=== PATIENT | male | born 1970 | race Caucasian/White ===

== ENCOUNTER 2023-01-16 06:58 | Day surgery (SDC) | payer OTHER ==
[2023-01-15 15:33] LABS: BASOPHILS % (AUTO) 0.9 % (0.0-2.0); EOSINOPHILS # (AUTO) 0.1 K/uL (0-0.4); EOSINOPHILS % (AUTO) 1.3 % (0.0-4.0); HEMATOCRIT 38.2 % (36-52); HEMOGLOBIN 13.4 g/dL (12.0-18.0); LYMPHOCYTES # (AUTO) 1.7 K/uL (2.0-11.5); LYMPHOCYTES % (AUTO) 32.4 % (20.5-51.1); MEAN CORPUSCULAR HEMOGLOBIN 29 pg (27-31); MEAN CORPUSCULAR HGB CONC 35 g/dL (33-37); MEAN CORPUSCULAR VOLUME 82.4 fL (80-94); MONOCYTES # (AUTO) 0.4 K/uL (0.8-1.0); MONOCYTES % (AUTO) 6.7 % (1.7-9.3); NEUTROPHILS # (AUTO) 3.1 K/uL (1.8-7.7); NEUTROPHILS % (AUTO) 58.7 % (42.2-75.2); PLATELET COUNT (AUTO) 196 K/uL (140-450); RED BLOOD CELL COUNT(AUTO) 4.64 MIL/uL (4.20-6.10); RED CELL DISTRIBUTION WIDTH 13.8 % (11.6-13.7); WHITE BLOOD COUNT (AUTO) 5.3 K/uL (4.8-10.8)
[2023-01-15 15:50] LABS: ALBUMIN 4.2 g/dL (3.4-5.0); ANION GAP 11.7 (8-16); POTASSIUM 3.7 mmol/L (3.5-5.1); TOTAL BILIRUBIN 0.4 mg/dL (0.0-1.0)
[~2023-01-16] VITALS: Ht 188 cm; Wt 99.8 kg
[~2023-01-16 06:58] MED LIST: HYDR-3298 PO
[2023-01-16] MEDS ORDERED: ONDANSETRON 4 MG/2 ML VIAL ONE ×2 (08:00→08:08)
[2023-01-16] MEDS ORDERED: SUCCINYLCHOLINE CHLORIDE 200 MG/10 ML VIAL IVP ONE ×2 (08:00→08:08)
[2023-01-16] MEDS ORDERED: ceFAZolin 1,000 MG VIAL ONE (08:00)
[2023-01-16] MEDS ORDERED: VECURONIUM 10 MG VIAL IVP ONE (08:00)
[2023-01-16] MEDS ORDERED: SUGAMMADEX SODIUM 200 MG/2 ML VIAL IV ONE ×2 (08:00→09:34)
[2023-01-16] MEDS ORDERED: PROPOFOL 200 MG/20 ML VIAL IV ONE ×2 (08:00→08:07)
[2023-01-16] MEDS ORDERED: DEXAMETHASONE 4 MG/ML VIAL ONE ×2 (08:00→08:08)
[2023-01-16] MEDS ORDERED: ROCURONIUM 50 MG/5 ML VIAL IV ONE ×2 (08:00→08:08)
[2023-01-16] MEDS ORDERED: LABETALOL 20 MG/4 ML VIAL IVP ONE (08:00)
[2023-01-16] MEDS ORDERED: fentaNYL citrate 0.05 MG/ML - 50mL vial IV ONE (08:00)
[2023-01-16] MEDS ORDERED: fentaNYL citrate 0.05 MG/ML VIAL ONE (08:07)
[2023-01-16] MEDS ORDERED: HYDROmorphone PFS 2 MG/ML SYR ONE ×2 (08:07→09:54)
[2023-01-16] MEDS ORDERED: KETOROLAC 30 MG/ML VIAL ONE (08:08)
[2023-01-16] MEDS ORDERED: BUPIVACAINE-MPF/EPI 0.25% 10 ML VIAL INJ ONE (08:09)
[2023-01-16] MEDS ORDERED: LIDOCAINE MPF 1% 10 ML ONE (08:09)
[2023-01-16] MEDS ORDERED: ACETAMINOPHEN 100 ML IV ONE (08:41)
[2023-01-16] MEDS ORDERED: LABETALOL 100 MG/20 ML VIAL ONE (09:46)
[2023-01-16] MEDS: HYDROmorphone 1 MG/ML AMP IVP PRN ×4 (09:55→10:25)
[2023-01-16] MEDS ORDERED: MORPHINE SULFATE 2 MG/ML SYR IVP PRN (10:20)
[2023-01-16] MEDS ORDERED: HYDROmorphone 1 MG/ML AMP IVP PRN (10:20)
[2023-01-16] MEDS ORDERED: ONDANSETRON 4 MG/2 ML VIAL IV PRN (10:20)
[2023-01-16] MEDS ORDERED: MORPHINE SULFATE 4 MG/ML SYR IV PRN (10:20)
[2023-01-16] MEDS ORDERED: HYDROcodone/APAP 5/325 MG 1 TAB TAB PO PRN (10:20)
[2023-01-16] MEDS ORDERED: HYDROcodone/APAP 5/325 MG 1 TAB TAB ONE (11:26)
[2023-01-17] MEDS ORDERED: ACET-10509 PO (00:03)
[2023-01-17] MEDS ORDERED: ONDA-188 SL (00:03)
== END 2023-01-16 14:14 | disposition home or self-care (01) ==
LOC: MDS 06:58 → MMU 06:59 → MDS 14:14
PROVIDERS: ATTEND Surgery
DX: K80.10 Calculus of gallbladder with chronic cholecystitis without obstruction (principal); K82.8 Other specified diseases of gallbladder; I10 Essential (primary) hypertension; Z20.822 Contact with and (suspected) exposure to COVID-19
CPT/HCPCS: 36415; 47562; 71045; 80053; 82374; 85025; 86886; 86900; 86901; 87426; J0330; J0690; J1100; J1170; J2001; J2405; J2704; J3010; J3490; J7030; J7060; J1885

== ENCOUNTER 2023-01-16 21:32 | Emergency (ER) | payer OTHER ==
[~2023-01-16] VITALS: Ht 188 cm; Wt 99.8 kg
[2023-01-16 21:40] VITALS: BP 155/100
--- NOTE | 2023-01-16 21:43 | NUR ---
TO LOBBY A/W BED AMBULATORY
[2023-01-16] MEDS ORDERED: MORPHINE SULFATE 4 MG/ML SYR IM ONE (23:00)
[2023-01-16] MEDS ORDERED: ONDANSETRON 4 MG/2 ML VIAL IM ONE (23:00)
[2023-01-17] MEDS ORDERED: ACET-10509 PO (00:03)
[2023-01-17] MEDS ORDERED: ONDA-188 SL (00:03)
--- NOTE | 2023-01-17 00:49 | NUR ---
Patient discharged with v/s stable. Written and verbal after care instructions given and explained. Patient alert, oriented and verbalized understanding of instructions. Ambulatory with steady gait. All questions addressed prior to discharge. ID band removed. Patient advised to follow up with PMD. Rx of TYLENOL AND ZOFRAN given. Patient educated on indication of medication including possible reaction and side effects. Opportunity to ask questions provided and answered.
== END 2023-01-17 00:49 | disposition home or self-care (01) ==
LOC: MED 21:32
DX: G89.18 Other acute postprocedural pain (principal); R10.84 Generalized abdominal pain; R11.2 Nausea with vomiting, unspecified; I10 Essential (primary) hypertension; Z90.49 Acquired absence of other specified parts of digestive tract; Z79.899 Other long term (current) drug therapy
CPT/HCPCS: 96372; 99284; J2270; J2405